=== PATIENT | male | born 1940 | race Caucasian/White ===

== ENCOUNTER 2016-06-16 23:23 | Observation (INO) | payer MEDICARE, OTHER ==
[~2016-06-16 23:23] MED LIST: ALBUTEROL SULF8.5 GM IH; ALPRAZOLAM PO; AMIODARONE HCL200 MG PO; ASMANEX220 MC3 IH; ATENOLOL100 M1 PO; ATENOLOL100 MG PO; ATENOLOL50 MG; BACTRIM DS TAB1 EAC2 PO; BUPROPION HCL150 M3 PO; COLACE100 MG PO; COUMADIN10 M1 PO; COUMADIN10 MG; COUMADIN10 MG PO; COUMADIN6 MG PO; CPAP; DOXYCYCLINE HY100 M5 PO; FAMVIR500 MG PO; K-DUR20 MEQ/TAB PO; KEFLEX500 M4 PO; LAMOTRIGINE ODT25 MG CH; LASIX20 M1 PO; LASIX20 MG; LASIX20 MG PO; LASIX40 MG PO; LOVENOX40 MG/0.4 SQ; MIRALAX17 G1 PO; MOBIC7.5 M2 PO; MOBIC7.5 MG PO; NORCO 5-325 TA1 EACH PO; NORCO 5/325 TAB1 TAB PO; OXYCODONE/APAP PO; PERCOCET 5/3251 TAB PO; POTASSIUM CHLO20 ME3 PO; POTASSIUM CHLO20 MEQ; PREDNISONE10 M1 PO; PREDNISONE20 MG PO; PROAIR HFA8.5 GM INH; PROSCAR5 M1 PO; QVAR7.3 G IH; SERTRALINE HCL50 M4 PO; SERTRALINE HCL50 MG PO; SKELAXIN400 MG PO; UNKNOWN INHALER; ZITHROMAX250MG Z-PAK PO; ZOLOFT50 M1 PO; celebrex; coumadin; lasix; potassium
[2016-06-17 00:24] LABS: BASO % 0.2 % (0-2); EOS % 0.2 % (0-7); HCT-HEMATOCRIT 41.3 % (36.0-53.5); HGB-HEMOGLOBIN 13.6 gm/dl (13.5-17.0); IMMATURE GRANULOCYTES ABSOLUTE 0.01 tho/cmm (0-0.03); IMMATURE GRANULOCYTES PERCENT 0.2 % (0-0.3); LYMPH % 13.7 % (20-45); LYMPH ABSOLUTE COUNT 0.9 tho/cmm (0.8-4.5); MCH (MEAN CORPUSCULAR HGB) 30.3 pg (28.0-32.0); MCHC MEAN CORPUSCULAR HGB CONC 32.9 % (32.0-36.0); MEAN PLATELET VOLUME 9.3 cmc (9.4-12.4); MONO % 8.4 % (0-12); MONOCYTE ABSOLUTE COUNT 0.5 tho/cmm (0.0-1.2); NEUTROPHIL ABSOLUTE COUNT 4.9 tho/cmm (1.6-8.0); NEUTROPHIL-AUTOMATED 4.9 tho/cmm (1.6-8.0); NEUTROPHILS % 77.3 % (40-80); PLATELET COUNT 163 tho/cmm (150-450); RED BLOOD COUNT 4.49 mil/cmm (4.40-5.70); RED CELL DISTRIBUTION WIDTH 13.8 % (12.4-16.4); WHITE BLOOD COUNT 6.3 tho/cmm (4.0-10.0)
[2016-06-17 00:28] LABS: INR 2.4 INR (0.9-1.1)
[2016-06-17 00:37] LABS: ALB/GLOB RATIO 0.9 (0.8-2.0); ALBUMIN 3.7 g/dl (3.5-5.0); ALKALINE PHOSPHATASE 98 U/L (33-138); ALT/SGPT 15 U/L (12-78); BILIRUBIN,TOTAL 1.1 mg/dl (0.0-1.5); BLOOD UREA NITROGEN 22 mg/dl (6-24); CALCIUM 9.4 mg/dl (8.5-10.5); CARBON DIOXIDE-VENOUS 27 mmol/L (22-32); CHLORIDE 107 mmol/l (96-110); CREATININE 1.03 mg/dl (0.60-1.30); GLUCOSE 113 mg/dL (70-110); SODIUM 140 mmol/L (135-145); eGFR VALUE FOR BLACK 81 mL/Min
[2016-06-17 00:40] LABS: ANION GAP 10 mmol/L (0-20); AST/SGOT 25 U/L (10-40); POTASSIUM 4.4 mmol/L (3.7-5.1)
[2016-06-17 05:57] LABS: INR 2.2 INR (0.9-1.1); PROTHROMBIN TIME 26.6 SECONDS (9.0-13.6)
[2016-06-17] MEDS ORDERED: TYLENOL325 M2 PO (11:01)
[2016-06-17 19:58] LABS: TSH-THYROID STIMULATING HORM. 0.45 uIU/ml (0.40-3.80)
[2016-06-18 06:42] LABS: INR 1.7 INR (0.9-1.1)
[2016-06-18 07:22] LABS: PROTHROMBIN TIME 20.6 SECONDS (9.0-13.6)
[2016-06-18] MEDS ORDERED: ASPIRIN325 M3 PO (09:42)
[2016-06-18] MEDS ORDERED: ASMANEX HFA13 GM INH (09:53)
== END 2016-06-18 11:00 ==
LOC: EDMED 23:23 → EMR2 06-17 02:09 → 5EB 06-17 03:45
PROVIDERS: Emergency Medicine; Psychiatry & Neurology Neurology; Registered Nurse; ADMIT Internal Medicine
DX: G45.9 Transient cerebral ischemic attack, unspecified (principal); R41.82 Altered mental status, unspecified; R51 Headache; I48.91 Unspecified atrial fibrillation; I10 Essential (primary) hypertension; G47.33 Obstructive sleep apnea (adult) (pediatric); Z86.711 Personal history of pulmonary embolism; Z86.718 Personal history of other venous thrombosis and embolism; I87.2 Venous insufficiency (chronic) (peripheral); Z87.891 Personal history of nicotine dependence; Z85.828 Personal history of other malignant neoplasm of skin; Z79.01 Long term (current) use of anticoagulants; Z79.899 Other long term (current) drug therapy; Z98.890 Other specified postprocedural states
CPT/HCPCS: A9577; G0378; G0480; G8978-GP-CJ; G8979-GP-CI; G8980-GP-CJ; G8987-GO-CJ; G8988-GO-CI; G8989-GO-CJ; J7030